=== PATIENT | male | born 1960 | race Two or more races ===

== ENCOUNTER 2018-07-02 13:02 | Emergency (ER) | payer OTHER ==
--- NOTE | 2018-07-02 14:18 | EDPHY ---
H & P Time Seen by Provider: 07/02/18 13:16 HPI/ROS: CHIEF COMPLAINT: Hand laceration History by patient HISTORY OF PRESENT ILLNESS: 57-year-old [id number] man presents complaining of laceration to left hand sustained from metal machine at work just prior to arrival. His last tetanus shot was within 10 years. He denies other pain or injury. REVIEW OF SYSTEMS: As in HPI, and all other systems reviewed and are negative Smoking Status: Current every day smoker Physical Exam: General Appearance: Alert and no distress. Head: Normocephalic, atraumatic Eyes: Pupils equal and round no injection. Extraocular movements are intact. Musculoskeletal: Neck is supple and nontender. Extremities: Left hand positive 2 cm curvilinear laceration for radial aspect thenar eminence/of 1st metacarpal, distal sensation and cap, distal cap refill less than 2 sec. Skin: No rashes or lesions except as described above. Constitutional: Initial Vital Signs Temperature (C) 37.0 C 07/02/18 13:12 Heart Rate 88 07/02/18 13:12 Respiratory Rate 16 07/02/18 13:12 Blood Pressure 131/91 H 07/02/18 13:12 O2 Sat (%) 93 07/02/18 13:12 O2 Delivery Mode Room Air Allergies/Adverse Reactions: No Known Allergies Allergy (Unverified 09/14/17 09:07) Home Medications: Medication Instructions Recorded NK [No Known Home Meds] 09/14/17 MDM/Departure - [facility] ED Course/Re-evaluation: Procedure: Laceration repair. Verbal consent was obtained from the patient. The 2 cm laceration on the left hand was anesthetized in the usual fashion. The wound was irrigated, draped and explored to its base with a gloved finger. There were no deep structures involved. No tendon injury was identified. The wound was repaired with 7 x 5 0 nylon without complication. The wound repair was simple. The procedure was performed by myself. - Depart Disposition: Home, Routine, Self-Care Clinical Impression: Laceration Condition: Good Instructions: Laceration (ED) Additional Instructions: You were seen by Dr. Ada Redd today. Keep your dressing on for the next 24 hr. After that you may remove it and wash the wound regularly with soap and water, cover it with ointment such as Aquaphor and a bandage until the sutures come out. Do not submerge the wound such as in a swimming pool. Please have the sutures removed in 7-10 days. Watch for signs and symptoms of infection including but not limited to pus from the wound, increased pain or redness, unexplained fever. Return for any worsening or new concerns. Referrals: NONE *PRIMARY CARE P,. [Primary Care Provider] - As per Instructions
[2018-07-02 14:32] VITALS: BP 146/96
== END 2018-07-02 14:32 | disposition home or self-care (01) ==
LOC: CED 13:02
PROC: 0HQGXZZ Repair Left Hand Skin, External Approach (ICD-10-PCS; principal; 2018-07-02)
DX: S61.412A Laceration without foreign body of left hand, initial encounter (principal); W31.1XXA Contact with metalworking machines, initial encounter; Y99.0 Civilian activity done for income or pay
CPT/HCPCS: 99282-ER